=== PATIENT | male | born 1975 | race Caucasian/White ===

== ENCOUNTER 2018-08-08 13:02 | Emergency (ER) | payer SELFPAY ==
[2018-08-08] MEDS ORDERED: NA CHLORIDE 0.9% 1,000 ML ONE (14:09)
[2018-08-08] MEDS ORDERED: FENTANYL CITR 100 MCG/2 ML ONE ×2 (14:09→21:05)
[2018-08-08 14:25] LABS: Absolute Lymphocytes (CBC) 0.8 K/uL (0.7-4.9); Absolute Monocytes 0.8 K/uL (0.1-1.3); Absolute Neutrophil 8.3 K/uL (1.8-8.0); Basophils % 0.2 % (0-1.3); Hematocrit 37.9 % (39.6-49.0); MPV 7.7 fL (7.6-11.3); Monocytes % 7.7 % (3.3-12.3); RBC Red Blood Cell Count 4.14 M/uL (4.33-5.43)
--- NOTE | 2018-08-08 14:43 | RAD REPORT ---
EXAM DESCRIPTION: CT - Head C Spine Cap Lizz Alvarez - 08/08/2018 2:15 pm CLINICAL HISTORY: Head and neck injury with chest and abdominal pain status post fall. Head and neck pain . TECHNIQUE: Computed axial tomography of the head and cervical spine was obtained Computed axial tomography of the chest, abdomen and pelvis was obtained. 100 cc Isovue-300 was given intravenously coronal and sagittal reconstruction was performed. All CT scans are performed using dose optimization technique as appropriate and may include automated exposure control or mA/KV adjustment according to patient size. COMPARISON: None FINDINGS: An intracranial bleed is not seen. The ventricles are normal in caliber. An extra-axial fl uid collection is not noted. A cervical fracture is not seen. No dislocation is seen. A mediastinal hematoma is not noted. A pleural effusion is not present. A lung contusion is not seen. Paraseptal emphysema The liver, spleen, pancreas, adrenals, kidneys and bladder appear unremarkable. Fractures involve the right transverse processes of L2-10 L5. Comminuted fracture involves the right ilium with marked displacement of fracture fragments and disru ption of the right sacroiliac joint. Nondisplaced fracture left sacral ala. Mildly displaced fracture left ischium 8 centimeter hematoma right iliacus muscle. Small amount of extraperitoneal blood is present within t he pelvis IMPRESSION: No acute intracranial abnormality is seen . A cervical fracture is not visualized. If the patient continues have symptoms to suggest intracrani al/spinal cord pathology then MRI would be recommended. No traumatic injury involving the chest, abdomen Comminuted fracture involves the right ilium with marked displacement of fracture fragments and disru ption of the right sacroiliac joint. Nondisplaced fracture left sacral ala. Mildly displaced fracture left ischium/left inferior pubic ramus 8 centimeter hematoma right iliacus muscle
--- NOTE | 2018-08-08 14:46 | RAD REPORT ---
EXAM DESCRIPTION: [facility] Single View08/08/2018 2:31 pm CLINICAL HISTORY: Chest pain COMPARISON: none FINDINGS: The lungs appear clear of acute infiltrate. The heart is normal size IMPRESSION: No acute abnormalities displayed
[2018-08-08] MEDS ORDERED: CLINDAMYCIN HCL 150 MG CAP ONE (14:52)
[2018-08-08 15:02] LABS: BUN Blood Urea Nitrogen 20 mg/dL (7-18); Bicarbonate 25 mmol/L (21-32); Glucose Level 136 mg/dL (74-106); Potassium 4.1 mmol/L (3.5-5.1); Sodium Level 137 mmol/L (136-145)
--- NOTE | 2018-08-08 15:19 | EDPHYS ---
Physician Documentation [facility] Emergency Department Name: Darren Perales Age: 42 yrs Sex: Male : 1975 Arrival Date: 08/08/2018 Time: 13:08 Bed 3 Private MD: ED Physician Rosenda Barrow HPI: 08/08 14:00 This 42 yrs old Male presents to ER via Wheelchair with complaints of Fall ma2 Injury. 14:00 Details of fall: The patient fell from a height. Onset: The symptoms/episode ma2 began/occurred suddenly, 1 day(s) ago. Associated injuries: The patient sustained injury to the head. Severity of symptoms: At their worst the symptoms were moderate, in the emergency department the symptoms are unchanged. The patient has not experienced similar symptoms in the past. [place], about 5 ft high.. does not remember what happened, has abrasions to right lower back and bilateral le pain and abrasions . Historical: - Allergies: 13:30 No Known Allergies; ph - Home Meds: 13:30 None [Active]; ph - PMHx: 13:30 None; ph - Immunization history:: Last tetanus immunization: < 5 years ago. - Social history:: Patient/guardian denies using alcohol, street drugs, The patient lives with family, Smoking status: Patient uses tobacco products, smokes one pack cigarettes per day. Patient uses alcohol, on a daily basis. 5th of liquor/day. - Immunization history: Last tetanus immunization: < 5 years ago. - Family history:: not pertinent. - Ebola Screening: : No symptoms or risks identified at this time. ROS: 14:00 Constitutional: Negative for fever, chills, and weight loss, Cardiovascular: Negative ma2 for chest pain, palpitations, and edema, Respiratory: Negative for shortness of breath, cough, wheezing, and pleuritic chest pain, Abdomen/GI: Negative for abdominal pain, nausea, diarrhea, and constipation. 14:00 Back: Positive for flank pain, on the right. 14:00 MS/extremity: Positive for abrasion, pain, rash, Negative for contusion, deformity. 14:00 All other systems are negative. Exam: 14:00 Constitutional: This is a well developed, well nourished patient who is awake, alert, ma2 and in no acute distress. Chest/axilla: Normal chest wall appearance and motion. Nontender with no deformity. No lesions are appreciated. Cardiovascular: Regular rate and rhythm with a normal S1 and S2. No gallops, murmurs, or rubs. Normal PMI, no JVD. No pulse deficits. Respiratory: Lungs have equal breath sounds bilaterally, clear to auscultation and percussion. No rales, rhonchi or wheezes noted. No increased work of breathing, no retractions or nasal flaring. Abdomen/GI: Soft, non-tender, with normal bowel sounds. No distension or tympany. No guarding or rebound. No evidence of tenderness throughout. Neuro: Awake and alert, GCS 15, oriented to person, place, time, and situation. Cranial nerves II-XII grossly intact. Motor strength 5/5 in all extremities. Sensory grossly intact. Cerebellar exam normal. Normal gait. 14:00 Back: ROM is normal, vertebral tenderness, is appreciated at L3, muscle spasm, right cva tenderness and abrasion . 14:00 Musculoskeletal/extremity: ROM: limited active range of motion, in right hip, limited passive range of motion, Compartment Syndrome exam of affected extremity: is normal. abrasions to both lower extremity . Vital Signs: 13:29 BP 80 / 59; Pulse 87; Resp 24; Temp 98.1; Pulse Ox 100% on R/A; Weight 63.5 kg; ph 14:33 BP 106 / 74; Pulse 77; Resp 16 S; Pulse Ox 100% on R/A; Pain 7/10; jl7 14:51 BP 117 / 75; Pulse 78; Resp 14 S; Pulse Ox 100% on R/A; Pain 7/10; jl7 15:00 BP 112 / 73; Pulse 77; Resp 16 S; Pulse Ox 100% on R/A; jl7 15:15 BP 111 / 75; Pulse 72; Resp 16 S; Pulse Ox 100% on R/A; jl7 16:00 BP 117 / 80; Pulse 74; Resp 16 S; Pulse Ox 100% on R/A; jl7 16:45 BP 121 / 83; Pulse 79; Resp 16; Pulse Ox 98% ; jl7 17:30 BP 126 / 78; Pulse 79; Resp 16 S; Pulse Ox 98% on R/A; jl7 18:15 BP 118 / 74; Pulse 79; Resp 16 S; Pulse Ox 99% on R/A; jl7 19:00 BP 116 / 75; Pulse 80; Resp 18; Temp 99.3; Pulse Ox 100% on R/A; Pain 8/10; aa1 19:44 BP 110 / 76; Pulse 83; Resp 16; Temp 99.4(C); Pulse Ox 100% on R/A; Pain 5/10; aa1 20:23 BP 116 / 74; Pulse 84; Resp 16; Temp 99.6(C); Pulse Ox 97% on R/A; Pain 5/10; aa1 21:30 BP 125 / 82; Pulse 83; Resp 18; Temp 99.8; Pulse Ox 100% on R/A; Pain 5/10; aa1 Zurdo Coma Score: 14:30 Eye Response: spontaneous(4). Verbal Response: oriented(5). Motor Response: obeys jl7 commands(6). Total: 15. 20:23 Eye Response: spontaneous(4). Verbal Response: oriented(5). Motor Response: obeys aa1 commands(6). Total: 15. Trauma Score (Adult): 14:30 Eye Response: spontaneous(1); Verbal Response: oriented(1); Motor Response: obeys jl7 commands(2); Systolic BP: > 89 mm Hg(4); Respiratory Rate: 10 to 29 per min(4); Zurdo Score: 15; Trauma Score: 12 15:15 Eye Response: spontaneous(1); Verbal Response: oriented(1); Motor Response: obeys jl7 commands(2); Systolic BP: > 89 mm Hg(4); Respiratory Rate: 10 to 29 per min(4); Akeley Score: 15; Trauma Score: 12 19:00 Eye Response: spontaneous(1); Verbal Response: oriented(1); Motor Response: obeys aa1 commands(2); Systolic BP: > 89 mm Hg(4); Respiratory Rate: 10 to 29 per min(4); Zurdo Score: 15; Trauma Score: 12 19:45 Eye Response: spontaneous(1); Verbal Response: oriented(1); Motor Response: obeys aa1 commands(2); Systolic BP: > 89 mm Hg(4); Respiratory Rate: 10 to 29 per min(4); Zurdo Score: 15; Trauma Score: 12 21:30 Eye Response: spontaneous(1); Verbal Response: oriented(1); Motor Response: obeys aa1 commands(2); Systolic BP: > 89 mm Hg(4); Respiratory Rate: 10 to 29 per min(4); Akeley Score: 15; Trauma Score: 12 MDM: 13:33 Patient medically screened. ma2 14:00 Differential diagnosis: abrasion, closed head injury, contusion, fracture, sprain, ma2 strain. 15:16 Data reviewed: vital signs, nurses notes, radiologic studies. Counseling: I had a ma2 detailed discussion with the patient and/or guardian regarding: the historical points, exam findings, and any diagnostic results supporting the discharge/admit diagnosis, the presence of at least one elevated blood pressure reading (>120/80) during this emergency department visit, the need for outpatient follow up. ED course: pelvic and spine fractures discussed with dr. hay orthopedics who recommends transfer for higher level of care as we are unable to take care of him here given the spine fractures no neurosurgery available for back up.. family [facility] to go [facility]. 15:57 Data reviewed: radiologic studies. Data reviewed: nurses notes, radiologic studies. ma2 Data reviewed: radiologic studies. Counseling: I had a detailed discussion with the patient and/or guardian regarding: the presence of at least one elevated blood pressure reading (>120/80) during this emergency department visit, the need for outpatient follow up. Counseling: I had a detailed discussion with the patient and/or guardian regarding: the presence of at least one elevated blood pressure reading (>120/80) during this emergency department visit, the need for outpatient follow up. 16:55 ED course: . ma2 18:05 ED course: patient has pelvic fracture discussed with dr. hay orthopedic who ma2 recommeds . 18:17 ED course: transfer for higher level of care as patient has spine fracture and needs ma2 spine surgeon onboard. Patient prefers to be transferred to [facility] if needed.. transfer initiated and discussed with trauma surgeon and orthopedics dr. Britton who advised that patient does not need neurosurgery consult for transverse process fracture and advised that dr. hay to call them and request the transfer if needed.. Dr. Hay has been in the or and unable to reach him between 4 and 7 pm.. will transfer care of this patient to upcoming er physician pending dr. hay re-evaluation and disposition decision.. . 08/08 13:45 Order name: Basic Metabolic Panel; Complete Time: 15:06 ma2 08/08 13:45 Order name: CBC with Diff; Complete Time: 14:30 ma2 08/08 13:45 Order name: Creatinine for Radiology; Complete Time: 15:06 ma2 08/08 13:45 Order name: Type And Screen; Complete Time: 15:51 ma2 08/08 20:24 Order name: ABO/RH no charge EDMS 08/08 13:45 Order name: CT Traumagram (Head C Spine CAP W Con); Complete Time: 14:55 ma2 08/08 13:49 Order name: Chest Single View; Complete Time: 14:55 EDMS 08/08 15:09 Order name: Femur Left XRAY; Complete Time: 16:26 ma2 08/08 15:09 Order name: Femur Right XRAY; Complete Time: 16:26 ma2 08/08 13:45 Order name: Labs collected and sent; Complete Time: 14:40 ma2 Administered Medications: 14:10 Drug: fentaNYL (PF) 50 mcg Route: IVP; Site: left antecubital; jl7 14:35 Follow up: Response: No adverse reaction; Pain is decreased jl7 14:40 Drug: NS 0.9% 1000 ml Route: IV; Rate: 1 bolus; Site: left antecubital; jl7 15:44 Follow up: IV Status: Completed infusion jl7 14:45 Drug: Clindamycin 300 mg Route: PO; jl7 14:45 Follow up: Response: No adverse reaction jl7 19:10 Drug: fentaNYL (PF) 50 mcg Route: IVP; Site: left antecubital; jl7 19:26 Follow up: Response: No adverse reaction; Pain is decreased jl7 21:04 Drug: fentaNYL (PF) 50 mcg Route: IVP; Site: left antecubital; aa1 21:31 Follow up: Response: No adverse reaction; Pain is decreased aa1 21:04 Not Given (Other Intervention Used): Nicoderm CQ 14 mg/24 hr 1 patches Transdermal once aa1 21:04 Drug: Nicoderm CQ 21 mg/24 hr 1 patches Route: Transdermal; Site: affected area; aa1 Disposition: 08/08/18 21:01 Transfer ordered to [facility]. Diagnosis are Multiple fractures of pelvis without disruption of pelvic ring, Contusion of right elbow, Contusion of right shoulder, Abrasion of elbow. - Reason for transfer: Higher level of care. - Accepting physician is Dr Sanchez. - Condition is Stable. - Problem is an ongoing problem. - Symptoms are unchanged. Signatures: Dispatcher [employer] EDOR Lavonne Mantilla RN RN aa1 Dawna Johnson RN RN Shaan Beauchamp, RN RN jl7 Rosenda Barrow MD MD ma2 Guero Maradiaga MD MD tw4 Corrections: (The following items were deleted from the chart) 13:48 13:45 Chest Single View+RAD.RAD.BRZ ordered. [facility] 16:51 15:19 08/08/2018 15:19 Transfer ordered to [facility]. Diagnosis is Multiple ma2 fractures of pelvis with disruption of pelvic ring; Fracture of lumbar spine and pelvis. Reason for transfer: Higher level of care. Accepting physician is [facility]. Condition is Stable. Problem is new. Symptoms are unchanged. ma2 21:47 21:01 08/08/2018 21:01 Transfer ordered to [facility]. Diagnosis is Multiple aa1 fractures of pelvis without disruption of pelvic ring; Contusion of right elbow; Contusion of right shoulder; Abrasion of elbow. Reason for transfer: Higher level of care. Accepting physician is Dr Sanchez. Condition is Stable. Problem is an ongoing problem. Symptoms are unchanged. tw4
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
[2018-08-08] MEDS ORDERED: NICOTINE 21 MG/PAT TD ONE (21:07)
== END 2018-08-08 21:47 | disposition short-term general hospital (02) ==
LOC: ER 13:02
DX: S32.9XXA Fracture of unspecified parts of lumbosacral spine and pelvis, initial encounter for closed fracture (principal); S50.01XA Contusion of right elbow, initial encounter; S40.011A Contusion of right shoulder, initial encounter; W18.39XA Other fall on same level, initial encounter; Y93.89 Activity, other specified; Y92.89 Other specified places as the place of occurrence of the external cause; F17.210 Nicotine dependence, cigarettes, uncomplicated
CPT/HCPCS: 36415; 51702; 70450; 71045; 71260; 72125; 74177; 80048; 85025; 86850; 86900; 86901; 96361; 96374; 99285; J3010; J7030; Q9967